=== PATIENT | female | born 1970 | race American Indian/Alaskan Native ===

== ENCOUNTER 2017-03-04 22:06 | Emergency (ER) | payer SELFPAY ==
[2017-03-04 23:26] VITALS: BMI 27.2
[2017-03-04 23:31] VITALS: RESP 16; TEMP 98.2; O2SAT 100
--- NOTE | 2017-03-05 00:15 | ED PDOC ---
Arrival/HPI - General Chief Complaint: Back Pain Time Seen by Provider: 03/05/17 00:13 Historian: Patient - History of Present Illness Narrative History of Present Illness (Text): 03/05/17 00:14 This 46 yo female presents to this ED c/o vaginal bleeding for 1 week. Patient admits similar symptoms in the past. Patient stated she has been changing 7- 8 pads daily for last 5 days. Patient denies dizziness, weakness, paresthesias, sob, cp, esquivel, diplopia, abdominal pain, pelvic pain, vaginal discharge, dyspareunia, or abnormal gait. Time/Duration: 1 week Symptom Course: Unchanged Context: Home Past Medical History - Provider Review Nursing Documentation Reviewed: Yes - Infectious Disease Hx of Infectious Diseases: None - Reproductive Menopause: No - Cardiac Hx Cardiac Disorders: No - Pulmonary Hx Respiratory Disorders: No - Neurological Hx Neurological Disorder: No - HEENT Hx HEENT Disorder: No - Renal Hx Renal Disorder: No - Endocrine/Metabolic Hx Endocrine Disorders: No - Hematological/Oncological Hx Blood Disorders: Yes Hx Anemia: Yes Hx Blood Transfusions: No - Integumentary Hx Dermatological Disorder: No - Musculoskeletal/Rheumatological Hx Musculoskeletal Disorders: No - Gastrointestinal Hx Gastrointestinal Disorders: No - Genitourinary/Gynecological Hx Genitourinary Disorders: No - Psychiatric Hx Psychophysiologic Disorder: No Hx Substance Use: No - Surgical History Hx Section: Yes - Anesthesia Hx Anesthesia: Yes Hx Anesthesia Reactions: No Hx Malignant Hyperthermia: No Family/Social History - Physician Review Nursing Documentation Reviewed: Yes Family/Social History: No Known Family HX Smoking Status: Former Smoker Hx Alcohol Use: No Hx Substance Use: No Allergies/Home Meds Allergies/Adverse Reactions: Allergies No Known Allergies Allergy (Verified 03/04/17 23:26) Review of Systems - Review of Systems Constitutional: Normal. absent: Fatigue, Weight Change, Fevers Eyes: Normal. absent: Vision Changes, Photophobia, Eye Pain ENT: Normal Respiratory: Normal. absent: SOB, Cough, Sputum, Wheezing Cardiovascular: Normal. absent: Chest Pain Gastrointestinal: absent: Abdominal Pain, Nausea, Vomiting Genitourinary Female: Vaginal Bleeding. absent: Dysuria, Frequency, Hematuria, Vaginal Discharge Musculoskeletal: Normal. absent: Back Pain, Neck Pain Skin: Normal. absent: Rash Neurological: Normal. absent: Headache, Dizziness, Focal Weakness, Gait Changes , Speech Changes, Facial Droop, Disequilibrium Endocrine: Normal Hemo/Lymphatic: Normal Psychiatric: Normal Physical Exam Vital Signs Temp Pulse Resp BP Pulse Ox 03/05/17 03:12 74 16 147/87 03/04/17 23:30 98.2 F 94 H 16 143/83 100 Temperature: Afebrile Blood Pressure: Normal Pulse: Regular Respiratory Rate: Normal Appearance: Positive for: Well-Appearing, Non-Toxic, Comfortable Pain Distress: None Mental Status: Positive for: Alert and Oriented X 3 - Systems Exam Head: Present: Atraumatic, Normocephalic Pupils: Present: PERRL Extroacular Muscles: Present: EOMI Conjunctiva: Present: Normal Mouth: Present: Moist Mucous Membranes Neck: Present: Normal Range of Motion Respiratory/Chest: Present: Clear to Auscultation, Good Air Exchange. No: Respiratory Distress, Accessory Muscle Use Cardiovascular: Present: Regular Rate and Rhythm, Normal S1, S2. No: Murmurs Abdomen: Present: Normal Bowel Sounds. No: Tenderness, Distention, Peritoneal Signs Genitourinary/Pelvic Exam: Present: Normal External Genitalia, Vaginal Bleeding (scant amount of vaginal bleeding). No: Vaginal Discharge, Vaginal Lesions, Adenexal Tenderness, Adenexal Mass, Cervical Motion Tendernes, Cervical os Closed, Odor Back: Present: Normal Inspection. No: CVA Tenderness Upper Extremity: Present: Normal Inspection, Normal ROM, NORMAL PULSES, Neurovascularly Intact, Capillary Refill < 2s. No: Cyanosis, Edema Lower Extremity: Present: Normal Inspection, NORMAL PULSES, Normal ROM, Neurovascularly Intact, Capillary Refill < 2 s. No: Edema, CALF TENDERNESS Neurological: Present: GCS=15, CN II-XII Intact, Speech Normal, Motor Func Grossly Intact, Normal Sensory Function, Normal Cerebellar Funct, Gait Normal Skin: Present: Warm, Dry, Normal Color. No: Rashes Psychiatric: Present: Alert, Oriented x 3, Normal Insight, Normal Concentration Medical Decision Making ED Course and Treatment: 03/05/17 02:[address] Deng [employer] [employer] regarding patient c/o heavy bleeding x 7 days, and a drop of Hg from 12 to 8.8. He recommended patient to f/u [facility] and have endometrial biopsy, and medical treatment at the time of clinic visit.Patient has abnormal gait, and she denies dizziness. Re-evaluation Time: 02:27 Reassessment Condition: Re-examined, Improved - Lab Interpretations Lab Results: 03/05/17 01:10 03/05/17 01:10 Lab Results 03/05/17 01:10: Sodium 135, Potassium 3.5 L, Chloride 102, Carbon Dioxide 25, Anion Gap 12, BUN 12, Creatinine 0.8, Est GFR ( Amer) > 60, Est GFR (Non- Af Amer) > 60, Random Glucose 95, Calcium 9.1, Total Bilirubin 0.3, AST 23, ALT 23, Alkaline Phosphatase 79, Total Protein 7.5, Albumin 4.0, Globulin 3.4, Albumin/Globulin Ratio 1.2 03/05/17 01:10: Urine Color Light red, Urine Appearance Bloody, Urine pH 6.5, Ur Specific Thayer 1.015, Urine Protein 30 H, Urine Glucose (UA) Negative, Urine Ketones Negative, Urine Blood Large H, Urine Nitrate Negative, Urine Bilirubin Negative, Urine Urobilinogen 0.2, Ur Leukocyte Esterase Negative, Urine RBC Tntc, Urine WBC 2 - 5, Ur Epithelial Cells 1 - 3, Urine Bacteria Small , Urine HCG, Qual Negative 03/05/17 01:10: WBC 5.5, RBC 3.35 L, Hgb 8.8 L, Hct 27.5 L, MCV 82.1, MCH 26.3, MCHC 32.0, RDW 15.0 H, Plt Count 358, MPV 9.8, Gran % 52.8, Lymph % (Auto) 35.9 H, Mayes % (Auto) 7.1 H, Eos % (Auto) 3.3, Baso % (Auto) 0.9, Gran # 2.91, Lymph # 2.0, Mayes # 0.4, Eos # 0.2, Baso # 0.05 I have reviewed the lab results: Yes Interpretation: Abnormal lab values - Medication Orders Current Medication Orders: Discontinued Medications Cephalexin Monohydrate (Keflex) 500 mg PO STAT STA PRN Reason: Protocol Stop: 03/05/17 02:31 Last Admin: 03/05/17 02:54 Dose: 500 mg Ibuprofen (Motrin Tab) 600 mg PO STAT STA Stop: 03/05/17 02:28 Last Admin: 03/05/17 02:53 Dose: 600 mg Disposition/Present on Arrival - Present on Arrival Any Indicators Present on Arrival: No History of DVT/PE: No History of Uncontrolled Diabetes: No Urinary Catheter: No History of Decub. Ulcer: No History Surgical Site Infection Following: None - Disposition Have Diagnosis and Disposition been Completed?: Yes Diagnosis: Menorrhagia Disposition: HOME/ ROUTINE Disposition Time: 02:28 Patient Plan: Discharge Condition: GOOD Discharge Instructions (ExitCare): Menorrhagia (ED) Additional Instructions: Call [facility] for follow up visit in 2-3 days. Take medication as instructed. return to emergency if symptoms worsen. Prescriptions: Cephalexin [cephalexin] 500 mg PO BID #10 cap Naproxen [Naprosyn Tab] 375 mg PO BID #14 tab Referrals: [facility] [Outside] - [facility] with [facility] [[facility]] - Follow up with primary Forms: WORK NOTE
[2017-03-05 01:13] LABS: ADD MANUAL DIFF? NO
[2017-03-05 01:18] LABS: PH,URINE 6.5 (4.7-8.0); URINE BILIRUBIN NEGATIVE (NEGATIVE); URINE BLOOD LARGE (NEGATIVE); URINE GLUCOSE (UA) NEGATIVE (NEGATIVE); URINE KETONE NEGATIVE (NEGATIVE); URINE LEUKOCYTE ESTERASE NEGATIVE Leu/uL (NEGATIVE); URINE PROTEIN 30 mg/dL (<30 mg/dL); URINE UROBILINOGEN 0.2 E.U./dL (<1 E.U./dL)
[2017-03-05 01:26] LABS: ALB/GLOB RATIO 1.2 (1.1-1.8); ALKALINE PHOSPHATASE 79 U/L (38-133); ALT/SGPT 23 U/L (7-56); AST/SGOT 23 U/L (15-39); BILIRUBIN,TOTAL 0.3 mg/dL (0.2-1.3); BLOOD UREA NITROGEN 12 mg/dL (7-21); CALCIUM 9.1 mg/dL (8.4-10.5); CARBON DIOXIDE 25 mmol/L (21-33); CHLORIDE 102 mmol/L (98-107); GFR AFRICAN-AMERICAN > 60; GLUCOSE,RANDOM 95 mg/dL (70-110); POTASSIUM 3.5 mmol/L (3.6-5.0); SODIUM 135 mmol/L (132-148); TOTAL PROTEIN 7.5 g/dL (5.8-8.3)
[2017-03-05 01:28] LABS: BASO # 0.05 K/mm3 (0.0-2.0); BASO % 0.9 % (0.0-3.0); EOS # 0.2 (0.0-0.7); EOS % 3.3 % (1.5-5.0); GRAN # 2.91 (1.4-6.5); GRAN % 52.8 % (50.0-68.0); HEMATOCRIT 27.5 % (36.0-48.0); LYMPH % 35.9 % (22.0-35.0); MEAN CELL VOLUME 82.1 fL (80.0-105.0); MEAN CORPUSCULAR HEMOGLOBIN 26.3 pg (25.0-35.0); MEAN PLATELET VOLUME 9.8 fl (7.0-11.0); MONO # 0.4 (0.1-0.6); MONO % 7.1 % (1.0-6.0); PLATELET COUNT 358 10^3/uL (120.0-450.0); WHITE BLOOD COUNT 5.5 10^3/ul (4.5-11.0)
[2017-03-05 01:32] LABS: URINE COLOR LIGHT RED (YELLOW)
[2017-03-05 01:33] LABS: URINE APPEARANCE BLOODY (CLEAR)
[2017-03-05 01:53] LABS: URINE RBC TNTC /hpf (0-2)
[2017-03-05 01:54] LABS: URINE BACTERIA SMALL (NEG)
[2017-03-05 03:13] VITALS: BP 147/87; PULSE 74
== END 2017-03-05 03:13 | disposition home or self-care (01) ==
LOC: ED 22:06
DX: N92.0 Excessive and frequent menstruation with regular cycle (principal)